=== PATIENT | male | born 1985 | race Caucasian/White ===

== ENCOUNTER 2019-06-24 15:14 | Day surgery (SDC) | payer MEDICAID ==
[~2019-06-24] VITALS: Ht 172.7 cm; Wt 61.4 kg
[2019-06-24 15:37] VITALS: BP 130/94
[2019-06-24] MEDS ORDERED: LACTATED RINGERS 1,000 ML IV SCH (15:38)
[2019-06-24] MEDS ORDERED: VICODIN (15:42)
[2019-06-24] MEDS ORDERED: MEPERIDINE/PF 25MG/ML,1ML IVPush PRN (16:30)
[2019-06-24] MEDS ORDERED: LABETALOL 5MG/ML, 20ML IV PRN (16:30)
[2019-06-24] MEDS ORDERED: ACETAMINOPHEN 325 MG TABLET PO PRN (16:30)
[2019-06-24] MEDS ORDERED: FENTANYL PF 100 MCG/2ML IV PRN (16:30)
[2019-06-24] MEDS ORDERED: HYDROmorphone 2 MG/ML, 1ML IVPush PRN (16:30)
[2019-06-24] MEDS ORDERED: ONDANSETRON 2MG/ML, 2ML IV PRN ×2 (16:30→19:30)
[2019-06-24] MEDS ORDERED: OXYcodone 5 MG/5 ML ORAL.SOL UDC PO PRN (16:30)
[2019-06-24] MEDS ORDERED: PROMETHAZINE 25 MG/ML, 1ML IV PRN (16:30)
[2019-06-24] MEDS ORDERED: hydrALAzine 20 MG/ML, 1ML IV PRN (16:30)
[2019-06-24] MEDS ORDERED: MIDAZOLAM 1 MG/ML, 2ML ONE (16:47)
[2019-06-24] MEDS ORDERED: FENTANYL PF 100 MCG/2ML ONE ×2 (16:47→17:40)
[2019-06-24] MEDS ORDERED: EPINEPHRINE 1 MG/ML, 1ML ONE (17:04)
[2019-06-24] MEDS ORDERED: BUPIVACAINE/PF 0.5% ONE (17:04)
[2019-06-24] MEDS ORDERED: CEFAZOLIN 1,000 MG ONE (17:28)
[2019-06-24] MEDS ORDERED: PROPOFOL 10 MG/ML, 20ML ONE (17:28)
[2019-06-24] MEDS ORDERED: DEXAMETHASONE 4 MG/ML, 1ML ONE (17:29)
[2019-06-24] MEDS ORDERED: KETOROLAC 30 MG/1 ML ONE (17:30)
[2019-06-24] MEDS ORDERED: ONDANSETRON 2MG/ML, 2ML ONE (17:30)
[2019-06-24] MEDS ORDERED: ACETAMINOPHEN 650 MG/20.3 ML UDC ONE (18:26)
[2019-06-24] MEDS ORDERED: OXYcodone 5 MG/5 ML ORAL.SOL UDC ONE (18:27)
[2019-06-24] MEDS ORDERED: HYDROcodone/APAP 7.5-325MG/15ML UDC PO PRN (19:30)
== END 2019-06-24 19:45 | disposition home or self-care (01) ==
LOC: OR 15:14 → 4NE 18:47 → OR 19:45
PROVIDERS: ATTEND Orthopaedic Surgery
DX: S62.232A Other displaced fracture of base of first metacarpal bone, left hand, initial encounter for closed fracture (principal); F17.290 Nicotine dependence, other tobacco product, uncomplicated; Z82.61 Family history of arthritis; X58.XXXA Exposure to other specified factors, initial encounter; Y93.89 Activity, other specified; Y92.89 Other specified places as the place of occurrence of the external cause; Y99.8 Other external cause status
CPT/HCPCS: 01830; 26615; 73120; C1713; J0171; J0690; J1100; J1885; J2250; J2405; J2704; J3010; 76000; G0378